=== PATIENT | female | born 1975 | race Caucasian/White ===

== ENCOUNTER 2017-10-13 10:03 | Emergency (ER) | payer OTHER ==
[~2017-10-13] VITALS: Ht 165.1 cm; Wt 64.4 kg
[2017-10-13 10:12] VITALS: TEMP 36.9; Ht 165.1 cm; Wt 64.4 kg
[2017-10-13] MEDS ORDERED: L-ME1CAP PO (10:29)
[2017-10-13] MEDS ORDERED: DICL1TAB5 PO (10:29)
[2017-10-13] MEDS ORDERED: BACL10TA PO (10:29)
[2017-10-13] MEDS ORDERED: BTLAI INJ (10:29)
[2017-10-13] MEDS ORDERED: QUET150T PO (10:29)
[2017-10-13] MEDS ORDERED: LEVO125T72 PO (10:29)
[2017-10-13] MEDS ORDERED: GABA-113 PO (10:29)
[2017-10-13] MEDS ORDERED: BUPR1MIS PO (10:29)
[2017-10-13] MEDS ORDERED: TOPI50TA16 PO (10:29)
[2017-10-13] MEDS ORDERED: ATOR-22 PO (10:29)
[2017-10-13] MEDS ORDERED: CETI10TA84 PO (10:29)
[2017-10-13] MEDS ORDERED: LAMO150T32 PO (10:29)
[2017-10-13] MEDS ORDERED: MOME100A INH (10:29)
[2017-10-13] MEDS ORDERED: PRAZ2CAP PO (10:29)
[2017-10-13] MEDS ORDERED: MONT1TAB3 PO (10:29)
[2017-10-13] MEDS ORDERED: THEO200T27 PO (10:29)
[2017-10-13] MEDS ORDERED: ACETAMINOPHEN 500 MG TAB PO STA (10:58)
[2017-10-13] MEDS ORDERED: MoRPHine SULFATE 4 MG/ML 1 ML CARP\\VIAL IV STA ×2 (10:58→12:50)
[2017-10-13] MEDS ORDERED: KETOROLAC TROMETHAMINE 30 MG/ML VIAL IV STA (10:58)
--- NOTE | 2017-10-13 11:03 | EMERGENCY ROOM VISIT NOTE ---
History Report prepared by Samantha: Medina Negrete Under the Supervision of: Dr. Caesar Holly M.D. First contact with patient: 10:36 Chief Complaint: FALL Stated Complaint: SEVERE LOWER BACK, RT CHEST AND RT UPPER LEG PAIN History of Present Illness The patient is a 41 year old white female with a past medical history of jaw joint degeneration who presents to the ED with a cc of a sudden fall that occurred two days ago. Positive lower back pain, buttocks pain, right elbow pain. She currently rates her discomfort as an 8/10 in severity. The patient states that afternoon she slipped and fell down 13 stairs. She states that she was trying to get through the pain, but states that her pain has been worsening. The patient states that she is in the area visiting for the holiday. She additionally notes that she lost her footing on Sunday and fell. Source of History: patient Onset: two days ago Position: other (global) Symptom Intensity: 8/10 Quality: other (fall) Timing: worsening, other (sudden) Associated Symptoms: + back pain Note: Associated Symptoms: buttocks pain, right elbow pain Review of Systems See HPI for pertinent positives and negatives. A total of ten systems were reviewed and were otherwise negative. Past Medical & Surgical Medical Problems: (1) Asthma (2) Bronchitis (3) Degenerative joint disease of mandible (4) Hyperlipidemia (5) Hyperthyroidism (6) MTHFR mutation (7) Pneumonia Family History Cancer Diabetes mellitus FHx: gallbladder disease Heart disease Hypertension Kidney disease Kidney stones Lung disease Seizures Social History Smoking Status: Never Smoker Smokeless Tobacco Use: No Alcohol Use: occasionally Marital Status: Housing Status: lives with friends Occupation Status: employed Current/Historical Medications Scheduled Atorvastatin (Lipitor), 20 MG PO DAILY Baclofen (Lioresal), 5 MG PO DAILY Botulinum Toxin Type A (Botox), 140 UNITS INJ Q3MO Buprenorphine HCl (Belbuca), 75 MCG PO BID Cetirizine (Zyrtec), 10 MG PO DAILY Diclofenac (Voltaren ), 25 MG PO DAILY Gabapentin (Neurontin), 300 MG PO BID D-Kwcamvvczhef-Vrynf (Deplin 15), 15 MG PO DAILY Lamotrigine (Lamictal), 150 MG PO DAILY Levothyroxine Sodium (Synthroid), 125 MCG PO DAILY Mometasone Furoate-Formoterol (Dulera 100/5 Mcg), 1 PUFF INH DAILY Montelukast Sodium (Singulair), 10 MG PO DAILY Prazosin Hcl (Minipress), 2 MG PO DAILY Quetiapine Fumarate Xr (Seroquel Xr), 150 MG PO DAILY Theophylline Ext Rel (Rolan-Dur Ext Rel), 200 MG PO DAILY Topiramate (Topamax), 50 MG PO BID Scheduled PRN Oxycodone Immediate Rel Tab (Roxicodone Ir), 5 MG PO Q4H PRN for Severe Pain Tramadol (Ultram), 50 MG PO Q8H PRN for Pain Allergies Coded Allergies: No Known Allergies (Unverified , 10/13/17) Physical Exam Vital Signs Date Time Temp Pulse Resp B/P (MAP) Pulse Ox O2 Delivery O2 Flow Rate FiO2 10/13/17 15:00 88 18 121/66 96 10/13/17 14:45 88 18 121/66 96 Room Air 10/13/17 13:10 88 18 111/61 96 Room Air 10/13/17 10:12 36.9 98 18 115/68 96 Room Air Physical Exam GENERAL: Awake, alert, well-appearing, NAD HENT: Normocephalic, atraumatic. EYES: Normal conjunctiva. Sclera non-icteric. NECK: Supple. No nuchal rigidity. FROM. RESPIRATORY: CTAB, no rhonchi, wheezing, crackles CARDIAC: RRR, no MRG ABDOMEN: Soft, NTND, BS+ BACK: Midline T and L spine MSK: No chest wall TTP, some right thigh pain with noted hematoma, compartments are soft, has an ecchymosis to the proximal medial right elbow, NVI distally to M,U,R nerves NEURO: GCS 15, CN 2-12 intact, moves all 4s on command SKIN: No rash or jaundice noted. Medical Decision & Procedures ER Provider Diagnostic Interpretation: Radiology results as stated below per my review and radiologist interpretation: THORACIC SPINE WITHOUT CLINICAL HISTORY: Pain status post fall. COMPARISON STUDY: No previous studies for comparison. FINDINGS: No fractures are identified within visualized portions of the posterior ribs. There is no acute thoracic spine fracture or subluxation. Vertebral body heights are maintained. Disc spaces are preserved. Central canal and neural foramen are suboptimally assessed by CT. Paraspinal soft tissues are within normal limits by CT. IMPRESSION: No acute thoracic spine fracture or subluxation. Electronically signed by: Mayo Muhammad M.D. 10/13/2017 1:02 PM Dictated Date/Time: 10/13/2017 12:58 PM PELVIS NO IV/ORAL CONT (CT) CLINICAL HISTORY: Pain status post fall. COMPARISON STUDY: No previous studies for comparison. FINDINGS: No acute fracture is identified within the pelvis or hips. Sacroiliac joints and symphysis pubis are intact. Osseous irregularity of the superior medial left iliac bone is chronic. No pelvic hematoma is identified. A tampon is in place. IMPRESSION: No acute fracture within the pelvis or hips. Electronically signed by: Mayo Muhammad M.D. 10/13/2017 1:11 PM Dictated Date/Time: 10/13/2017 1:08 PM LUMBAR SPINE WITHOUT CLINICAL HISTORY: Pain following fall. COMPARISON STUDY: No previous studies for comparison. FINDINGS: Alignment of the lumbar spine is anatomic. Vertebral body heights are maintained. There is no acute fracture. Disc spaces are preserved. Central canal and neural foramen are suboptimally assessed by CT. Sacroiliac joints are intact. Osseous irregularity of the medial superior left iliac bone is chronic. IMPRESSION: No acute lumbar spine fracture or subluxation. Electronically signed by: Mayo Muhammad M.D. 10/13/2017 1:05 PM Dictated Date/Time: 10/13/2017 1:02 PM R FEMUR 2 VIEWS ROUTINE CLINICAL HISTORY: Right hip pain following fall. COMPARISON: None FINDINGS: Alignment of the right hip and right knee is anatomic. There is no acute fracture of the right femur. IMPRESSION: No acute fracture of the right femur. Electronically signed by: Mayo Muhammad M.D. 10/13/2017 2:02 PM Dictated Date/Time: 10/13/2017 2:01 PM CHEST ONE VIEW PORTABLE CLINICAL HISTORY: Fall. Abdominal pain. COMPARISON STUDY: No previous studies for comparison. FINDINGS: There is no pneumothorax or pleural effusion. Lungs are clear. Cardiomediastinal silhouette is normal. Pulmonary vascularity is normal. IMPRESSION: No acute cardiopulmonary findings. Electronically signed by: Mayo Muhammad M.D. 10/13/2017 2:03 PM Dictated Date/Time: 10/13/2017 2:02 PM R ELBOW MIN 3 VIEWS ROUTINE CLINICAL HISTORY: Right elbow pain following fall. COMPARISON: None FINDINGS: Incidental note is made of an IV. Alignment of the right elbow is anatomic. There is no acute fracture or joint effusion. IMPRESSION: No acute fracture or joint effusion of the right elbow. Electronically signed by: Mayo Muhammad M.D. 10/13/2017 2:04 PM Dictated Date/Time: 10/13/2017 2:03 PM The status of this report is Signed. Draft = Not yet reviewed or approved by Radiologist. Signed = Reviewed and approved by Radiologist. Laboratory Results 10/13/17 11:10 Red Blood Count 3.88, Mean Corpuscular Volume 91.8, Mean Corpuscular Hemoglobin 29.9, Mean Corpuscular Hemoglobin Concent 32.6, Mean Platelet Volume 9.3, Neutrophils (%) (Auto) 64.5, Lymphocytes (%) (Auto) 22.5, Monocytes (%) (Auto) 8.0, Eosinophils (%) (Auto) 4.1, Basophils (%) (Auto) 0.7, Neutrophils # (Auto) 3.61, Lymphocytes # (Auto) 1.26, Monocytes # (Auto) 0.45, Eosinophils # (Auto) 0.23, Basophils # (Auto) 0.04 10/13/17 11:10 Test 10/13/17 11:10 White Blood Count 5.60 K/uL (4.8-10.8) Red Blood Count 3.88 M/uL (4.2-5.4) Hemoglobin 11.6 g/dL (12.0-16.0) Hematocrit 35.6 % (37-47) Mean Corpuscular Volume 91.8 fL (80-100) Mean Corpuscular Hemoglobin 29.9 pg (25-34) Mean Corpuscular Hemoglobin Concent 32.6 g/dl (32-36) Platelet Count 219 K/uL (130-400) Mean Platelet Volume 9.3 fL (7.4-10.4) Neutrophils (%) (Auto) 64.5 % Lymphocytes (%) (Auto) 22.5 % Monocytes (%) (Auto) 8.0 % Eosinophils (%) (Auto) 4.1 % Basophils (%) (Auto) 0.7 % Neutrophils # (Auto) 3.61 K/uL (1.4-6.5) Lymphocytes # (Auto) 1.26 K/uL (1.2-3.4) Monocytes # (Auto) 0.45 K/uL (0.11-0.59) Eosinophils # (Auto) 0.23 K/uL (0-0.5) Basophils # (Auto) 0.04 K/uL (0-0.2) RDW Standard Deviation 42.8 fL (36.4-46.3) RDW Coefficient of Variation 12.7 % (11.5-14.5) Immature Granulocyte % (Auto) 0.2 % Immature Granulocyte # (Auto) 0.01 K/uL (0.00-0.02) Anion Gap 6.0 mmol/L (3-11) Est Creatinine Clear Calc Drug Dose 71.5 ml/min Estimated GFR () 87.4 Estimated GFR (Non- 75.4 BUN/Creatinine Ratio 17.6 (10-20) Calcium Level 8.9 mg/dl (8.5-10.1) Laboratory results reviewed by me Medications Administered Medications (Trade) Dose Ordered Sig/Raul Route Start Time Stop Time Status Last Admin Dose Admin Ketorolac Tromethamine (Toradol Inj) 30 mg NOW STAT IV 10/13/17 10:58 10/13/17 11:04 DC 10/13/17 11:15 30 MG Acetaminophen (Tylenol Tab) 1,000 mg NOW STAT PO 10/13/17 10:58 10/13/17 11:04 DC 10/13/17 11:15 1,000 MG Morphine Sulfate (MoRPHine SULFATE INJ) 4 mg NOW STAT IV 10/13/17 10:58 10/13/17 11:04 DC 10/13/17 11:17 4 MG Ondansetron HCl (Zofran Inj) 4 mg NOW STAT IV 10/13/17 11:41 10/13/17 11:42 DC 10/13/17 13:01 4 MG Morphine Sulfate (MoRPHine SULFATE INJ) 4 mg NOW STAT IV 10/13/17 12:50 10/13/17 12:51 DC 10/13/17 13:01 4 MG Tramadol HCl (Ultram Tab) 50 mg NOW STAT PO 10/13/17 12:50 10/13/17 12:51 DC 10/13/17 13:02 50 MG Oxycodone HCl (Roxicodone Immediate Rel Tab) 5 mg NOW STAT PO 10/13/17 13:08 10/13/17 13:09 DC 10/13/17 13:28 5 MG Acetaminophen/ Hydrocodone Bitart ([place] 5/325mg Home Pack) 1 homepack UD ONCE PO 10/13/17 14:45 10/13/17 14:48 DC 10/13/17 14:56 1 HOMEPACK ED Course 1045: The patient was evaluated in room C3. A complete history and physical exam was performed. 1417: I reevaluated the patient and she is resting. I discussed the test results with her and I discussed the treatment plan. She verbalized complete understanding and agreement. She is ready to go home. Medical Decision Triage Nursing notes reviewed. The patient's presentation and history were concerning for fracture, strain, sprain. The patient is a 41 year old white female with a past medical history of jaw joint degeneration who presents to the ED with a cc of a sudden fall that occurred two days ago. Patient was seen and evaluated at the bedside. Patient states that she had a fall 2 days prior and slid down numerous stairs and stated that she had tried right eye pain but was now unbearable. Patient did have some mild ecchymosis and tenderness to the right thigh the compartments were soft and she was neurovascularly intact distally. Patient did complain of some midline spinal tenderness. Given that the patient did fall down a a fair number of stairs and she was in significant pain CTs and plain films were ordered along with blood work. Patient's blood work was fairly unremarkable. Patient was treated for pain control. Patient CTs of the thoracic and lumbar spine as well as the pelvis were negative for any acute fracture or dislocation. Patient's plain films were also negative of the elbow and the femur. Patient was informed of the findings and she was given additional pain medicine. Patient's blood work was fairly unremarkable. Patient will be traveling back to the [facility] area as the patient is not a local. Patient was told to follow-up with her primary care physician for any additional treatment if she would need. Patient was given strict follow-up, discharge, and return precautions. All questions were answered. Patient was deemed suitable for outpatient follow-up at this time. Patient agreed with the plan of care and was safely discharged home. Medication Reconcilliation Current Medication List: was personally reviewed by me Impression Primary Impression: Fall Additional Impression: Back pain Scribe Attestation The scribe's documentation has been prepared under my direction and personally reviewed by me in its entirety. I confirm that the note above accurately reflects all work, treatment, procedures, and medical decision making performed by me. Departure Information Dispostion Home / Self-Care Prescriptions Oxycodone Immediate Rel Tab (ROXICODONE IR) 5 Mg Tab 5 MG PO Q4H Y for Severe Pain, #9 TAB Prov: Caesar Holly M.D. 10/13/17 Tramadol (Ultram) 50 Mg Tab 50 MG PO Q8H Y for Pain, #9 TAB Prov: Caesar Holly M.D. 10/13/17 Referrals No Doctor, Assigned (PCP) Forms HOME CARE DOCUMENTATION FORM, IMPORTANT VISIT INFORMATION Patient Instructions Back Pain - [facility], Back Pain Relieve, ED Low Back Pain Injury, ED Mechanical Fall , ED Prevention Fall, [facility] Additional Instructions Please return to the emergency department if you have worsening or recurrent symptoms not amenable to at-home treatment. Please call for a follow-up appointment with her primary care physician. Please take your medications as prescribed. If you have other concerns and/or complaints please feel free to also call your primary care physician's office or return the ED for further evaluation, management, and treatment. You may take 600 mg Ibuprofen every 6 hours as needed for pain with food for no more than 2 consecutive days. You may take tylenol 1000 mg every 6 hours as needed for pain. You may take motrin and tylenol separately or at the same time. Take your medications as prescribed. You have been examined and treated today on an emergency basis only. This is not a substitute for, or an effort to provide, complete comprehensive medical care. It is impossible to recognize and treat all injuries or illnesses in a single emergency department visit. It is therefore important that you follow up closely with [facility], your PCP, and/or your specialist(s). Call as soon as possible for an appointment. Thank you for your time and consideration. I look forward to speaking with you again soon. Please don't hesitate to call us if you have any questions. Problem Qualifiers Primary Impression: Fall Encounter type: initial encounter Qualified Codes: W19.XXXA - Unspecified fall, initial encounter Additional Impression: Back pain Back pain location: low back pain Chronicity: acute Back pain laterality: midline Sciatica presence: without sciatica Qualified Codes: M54.5 - Low back pain
[2017-10-13 11:35] LABS: BASO % 0.7 %; BASO ABS # 0.04 K/uL (0-0.2); COMPLETE YES; EOS % 4.1 %; HEMATOCRIT 35.6 % (37-47); IG% 0.2 %; LYMPH % 22.5 %; LYMPH ABS # 1.26 K/uL (1.2-3.4); MEAN CELL VOLUME 91.8 fL (80-100); MEAN CORPUSCULAR HEMOGLOBIN 29.9 pg (25-34); MEAN CORPUSCULAR HGB CONC 32.6 g/dl (32-36); MEAN PLATELET VOLUME 9.3 fL (7.4-10.4); NEUT % 64.5 %; PLATELET COUNT 219 K/uL (130-400); RED BLOOD COUNT 3.88 M/uL (4.2-5.4)
[2017-10-13] MEDS ORDERED: ONDANSETRON INJ 2 MG/ML 2 ML VIAL IV STA (11:41)
[2017-10-13 11:52] LABS: BUN/CREATININE RATIO 17.6 (10-20); CALCIUM 8.9 mg/dl (8.5-10.1); CREATININE 0.95 mg/dl (0.60-1.20); POTASSIUM 3.7 mmol/L (3.5-5.1)
[2017-10-13] MEDS ORDERED: TRAMADOL HCL 50 MG TAB PO STA (12:50)
[2017-10-13] MEDS ORDERED: HYDROCODONE/ACETAMI 10/325 TAB PO STA (12:50)
--- NOTE | 2017-10-13 13:04 | DIAGNOSTIC IMAGING REPORT ---
THORACIC SPINE WITHOUT CLINICAL HISTORY: Pain status post fall. COMPARISON STUDY: No previous studies for comparison. FINDINGS: No fractures are identified within visualized portions of the posterior ribs. There is no acute thoracic spine fracture or subluxation. Vertebral body heights are maintained. Disc spaces are preserved. Central canal and neural foramen are suboptimally assessed by CT. Paraspinal soft tissues are within normal limits by CT. IMPRESSION: No acute thoracic spine fracture or subluxation. Electronically signed by: Mayo Muhammad M.D. 10/13/2017 1:02 PM Dictated Date/Time: 10/13/2017 12:58 PM
--- NOTE | 2017-10-13 13:06 | DIAGNOSTIC IMAGING REPORT ---
LUMBAR SPINE WITHOUT CLINICAL HISTORY: Pain following fall. COMPARISON STUDY: No previous studies for comparison. FINDINGS: Alignment of the lumbar spine is anatomic. Vertebral body heights are maintained. There is no acute fracture. Disc spaces are preserved. Central canal and neural foramen are suboptimally assessed by CT. Sacroiliac joints are intact. Osseous irregularity of the medial superior left iliac bone is chronic. IMPRESSION: No acute lumbar spine fracture or subluxation. Electronically signed by: Mayo Muhammad M.D. 10/13/2017 1:05 PM Dictated Date/Time: 10/13/2017 1:02 PM
[2017-10-13] MEDS ORDERED: OXYCODONE HCL IR 5 MG TAB (IMMEDIATE RELEASE) PO STA (13:08)
--- NOTE | 2017-10-13 13:12 | DIAGNOSTIC IMAGING REPORT ---
PELVIS NO IV/ORAL CONT (CT) CLINICAL HISTORY: Pain status post fall. COMPARISON STUDY: No previous studies for comparison. FINDINGS: No acute fracture is identified within the pelvis or hips. Sacroiliac joints and symphysis pubis are intact. Osseous irregularity of the superior medial left iliac bone is chronic. No pelvic hematoma is identified. A tampon is in place. IMPRESSION: No acute fracture within the pelvis or hips. Electronically signed by: Mayo Muhammad M.D. 10/13/2017 1:11 PM Dictated Date/Time: 10/13/2017 1:08 PM
--- NOTE | 2017-10-13 14:03 | DIAGNOSTIC IMAGING REPORT ---
R FEMUR 2 VIEWS ROUTINE CLINICAL HISTORY: Right hip pain following fall. COMPARISON: None FINDINGS: Alignment of the right hip and right knee is anatomic. There is no acute fracture of the right femur. IMPRESSION: No acute fracture of the right femur. Electronically signed by: Mayo Muhammad M.D. 10/13/2017 2:02 PM Dictated Date/Time: 10/13/2017 2:01 PM
--- NOTE | 2017-10-13 14:04 | DIAGNOSTIC IMAGING REPORT ---
CHEST ONE VIEW PORTABLE CLINICAL HISTORY: Fall. Abdominal pain. COMPARISON STUDY: No previous studies for comparison. FINDINGS: There is no pneumothorax or pleural effusion. Lungs are clear. Cardiomediastinal silhouette is normal. Pulmonary vascularity is normal. IMPRESSION: No acute cardiopulmonary findings. Electronically signed by: Mayo Muhammad M.D. 10/13/2017 2:03 PM Dictated Date/Time: 10/13/2017 2:02 PM
--- NOTE | 2017-10-13 14:05 | DIAGNOSTIC IMAGING REPORT ---
R ELBOW MIN 3 VIEWS ROUTINE CLINICAL HISTORY: Right elbow pain following fall. COMPARISON: None FINDINGS: Incidental note is made of an IV. Alignment of the right elbow is anatomic. There is no acute fracture or joint effusion. IMPRESSION: No acute fracture or joint effusion of the right elbow. Electronically signed by: Mayo Muhammad M.D. 10/13/2017 2:04 PM Dictated Date/Time: 10/13/2017 2:03 PM
[2017-10-13] MEDS ORDERED: TRAM-10 PO (14:35)
[2017-10-13] MEDS ORDERED: OXYC1TAB3 PO (14:35)
[2017-10-13] MEDS ORDERED: NORCO 5/325MG HOME PACK PO ONE (14:45)
[2017-10-13 15:00] VITALS: BP 121/66; PULSE 88; O2SAT 96
== END 2017-10-13 15:00 | disposition home or self-care (01) ==
LOC: C.EDB 10:06 → C.EDC 15:00
DX: M54.5 Low back pain (principal); W10.9XXA Fall (on) (from) unspecified stairs and steps, initial encounter; S70.11XA Contusion of right thigh, initial encounter; S50.01XA Contusion of right elbow, initial encounter; J45.909 Unspecified asthma, uncomplicated; M26.69 Other specified disorders of temporomandibular joint; E78.5 Hyperlipidemia, unspecified; E03.9 Hypothyroidism, unspecified; E72.12 Methylenetetrahydrofolate reductase deficiency; Z83.3 Family history of diabetes mellitus; Z82.49 Family history of ischemic heart disease and other diseases of the circulatory system; Z82.0 Family history of epilepsy and other diseases of the nervous system; Z84.1 Family history of disorders of kidney and ureter